=== PATIENT | female | born 2000 | race Caucasian/White ===

== ENCOUNTER 2023-09-16 11:07 | Outpatient (CLI) | payer OTHER, SELFPAY ==
--- NOTE | ~2023-09-16 | US_ITS ---
EXAMINATION: US pelvic complete DATE: 09/16/2023 INDICATION: Abnormal uterine bleeding TECHNIQUE: Multiple transabdominal sonographic images of the pelvis were obtained. COMPARISON: None. FINDINGS: The anteverted uterus measures 7.3 x 3.9 x 5.0 cm. The endometrial complex measures 4 mm in thicknes s. Linear echogenic and shadowing T-shaped IUD in expected position within the endometrial canal. The right ovary measures 2.6 x 2.3 x 1.9 cm. The left ovary measures 2.8 x 2.1 x 1.6 cm. Vascular flow a nd likely Priyanka follicles at both ovaries. There is no free fluid in the pelvis. IMPRESSION: 1. IUD in expected position within the normal thickness endometrial canal. Reviewed, dictated and finalized at location A.
== END 2023-09-16 11:08 ==
LOC: MICIMG 11:08
PROVIDERS: PCP Family Medicine; Visit Provider Nurse Practitioner
DX: N93.8 Other specified abnormal uterine and vaginal bleeding (principal); Z97.5 Presence of (intrauterine) contraceptive device
CPT/HCPCS: 76856

== ENCOUNTER 2025-04-03 20:14 | Emergency (ER) | payer BC, SELFPAY ==
[2025-04-03 20:47] VITALS: BP 134/91; PULSE 104; RESP 18; TEMP 36.6; O2SAT 100
--- NOTE | 2025-04-03 21:19 | ED_ITS ---
HPI - Animal Bite General Chief Complaint: Animal Bite Stated Complaint: Bit/scratched by cat at work Time Seen by Provider: 04/03/25 21:02 History of Present Illness HPI narrative: Patient is a 24-year-old female who presents to the ER after sustaining a cat bite and scratches to her left forearm, right hand and right forearm. 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 Patient is unsure when she last had her tetanus shot. Patient reports she is currently on amoxicillin. She endorses a history of migraines and depression. Patient denies any decreased range of motion, recent fevers, purulence drainage from the site. Related Data Allergies Allergy/AdvReac Type Severity Reaction Status Date / Time iodine Allergy Mild Hives Verified 12/20/24 16:22 Review of Systems Review of Systems: All systems reviewed & are unremarkable except as noted in HPI and below PMFSH Surgical History Surgical History History of third molar tooth extraction Social History Social History Smoking status: Current every day smoker Tobacco type: e-cigarettes/vaping Second hand tobacco smoke exposure: No Alcohol intake: never Substance use: never Substance use type: does not use Living arrangements: with friend(s) Occupation/Education: student Gender identity (if verbalized by the patient): Female Spiritual care concerns: No Exam Narrative: GENERAL: Well appearing, well-nourished, non-toxic, in no acute distress. HEAD: Normocephalic, atraumatic. NECK: Supple. No adenopathy, no masses. RESPIRATORY: Airway patent, respirations nonlabored. Clear to auscultation bilaterally, no rales, rhonchi, wheezing. CARDIOVASCULAR: Regular rate and rhythm without murmurs, rubs, or gallops. Peripheral pulses 2+ and equal bilaterally. ABDOMINAL: Soft, nontender, nondistended, no hepatosplenomegaly. Normoactive BS. MUSCULOSKELETAL: Moves all extremities. Strength/ROM intact without gross deformities. SKIN: Warm, dry, normal color. No rashes. Multiple scratches on left forearm, 1 to right palmar hand, and 1 visible to right forearm. NEURO: A&O X3. Speech clear. Cranial nerves II-XII intact. No ataxic movements. PSYCHIATRIC: Appropriate mood and affect. Normal interaction. Course Vital Signs Vital signs: Vital Signs Temperature 36.6 C 04/03/25 20:47 Pulse Rate 104 H 04/03/25 20:47 Respiratory Rate 18 04/03/25 20:47 Blood Pressure 134/91 H 04/03/25 20:47 Pulse Oximetry 100 04/03/25 20:47 Oxygen Delivery Room Air 04/03/25 20:47 Temperature 36.6 C 04/03/25 20:47 Pulse Rate 104 H 04/03/25 20:47 Respiratory Rate 18 04/03/25 20:47 Blood Pressure 134/91 H 04/03/25 20:47 Pulse Oximetry 100 04/03/25 20:47 Oxygen Delivery Room Air 04/03/25 20:47 MDM MDM Narrative Medical decision making narrative: Patient is a 24-year-old female who presents to the ER after sustaining a cat bite and scratches to her left forearm, right hand and right forearm. She reports she works at an [employer] and a 16-year-old cat, who is not vaccinated, injured her. Patient is unsure when she last had her tetanus shot. Patient reports she is currently on amoxicillin. She endorses a history of migraines and depression. Patient denies any decreased range of motion, recent fevers, purulence drainage from the site. Labs Ordered: None necessary Imaging Ordered: None necessary Medications Ordered: Tdap, Augmentin PO Consults: 2124- Spoke with Infectious Disease nurse, Ana Laura Malone, who advised pt does not need to be immunized for Rabies at this time, but animal control should be contacted for further advice. Differential Diagnosis Differential Diagnosis: Cat bite, laceration, encounter for vaccination Discharge Plan Discharge Clinical Impression: Cat bite Patient Disposition: Home Condition: Stable Instructions: Antibiotic Form, Animal Bite (ED) Additional Instructions: Please return to the ER with any worsening symptoms. Follow-up with animal control as soon as possible for further planning. Take all medications as prescribed, including regularly scheduled medications. You may take Tylenol and/or ibuprofen for pain control. Please complete your full dose of an tibiotics. Patient Language: Upper Sorbian Prescriptions: New amoxicillin-pot clavulanate 875-125 mg tablet 1 tablet PO Q12H Qty: 20 0RF No Action sumatriptan succinate 50 mg tablet See Rx Instructions PO .COMPLEX Qty: 12 2RF Rx Instructions: take 1 tab at onset of headache; if no relief may repeat 1 tab after at least 2 hrs; max = 4 tabs/24 hr PO citalopram 40 mg tablet 40 mg PO DAILY Qty: 90 1RF Follow-up/Referrals: Ousmane Martínez MD [Primary Care Provider, Family Practice] Leeanna Malone RN [Registered Nurse, Nursing] Referral Note: infection control Stand Alone Forms: Work/School Release IP Time of Disposition: 21:30
[2025-04-03] MEDS: TETANUS,DIPHTHERIA,AC PERTUSSIS ADULT (0.5 ML) BOOSTRIX IM (21:58)
== END 2025-04-03 22:05 | disposition home or self-care (01) ==
LOC: ANHED 21:37
PROVIDERS: Emergency Provider Registered Nurse; PCP Family Medicine
DX: S51.851A Open bite of right forearm, initial encounter (principal); S51.852A Open bite of left forearm, initial encounter; W55.01XA Bitten by cat, initial encounter; F17.290 Nicotine dependence, other tobacco product, uncomplicated; Z23 Encounter for immunization
CPT/HCPCS: 90471; 90715; 99283; A9270